=== PATIENT | female | born 1980 | race Caucasian/White ===

== ENCOUNTER 2020-11-18 20:09 | Inpatient (IN) | payer OTHER ==
[~2020-11-18] VITALS: Ht 172.7 cm; Wt 84.5 kg
[~2020-11-18 20:09] MED LIST: CORTISPORIN OTI10 ML EARBOTH; OMNICEF 300 MG300 MG PO
[2020-11-19 07:19] LABS: RED BLOOD COUNT 4.29 M/UL (4.00-5.10); WHITE BLOOD COUNT 5.3 K/UL (4.5-11.0)
[2020-11-19 07:48] LABS: BUN/CREATININE RATIO 19 (0-10)
[2020-11-19] MEDS ORDERED: BETAMETHASONE D50 G1 TP (08:49)
[2020-11-19] MEDS ORDERED: ELAVIL 50 MG TA50 MG PO (08:49)
[2020-11-19] MEDS ORDERED: METOPROLOL SUCC25 MG PO (08:50)
[2020-11-19] MEDS ORDERED: LISINOPRIL-HCT1 EAC1 PO (08:50)
[2020-11-19] MEDS ORDERED: MONTELUKAST SOD10 MG PO (08:54)
[2020-11-19] MEDS ORDERED: BUPRENORPHIN-N1 EACH SL (08:54)
[2020-11-19] MEDS ORDERED: QUETIAPINE FUM100 MG PO (08:55)
[2020-11-19] MEDS ORDERED: BUSPAR 10MG10 MG PO (08:57)
[2020-11-19] MEDS ORDERED: LISINOPRIL20 MG PO (13:31)
[2020-11-19] MEDS ORDERED: VITAMIN D3125 MCG PO (13:34)
[2020-11-19] MEDS ORDERED: MINIPRESS2 MG PO (13:35)
[2020-11-20 09:59] LABS: HEMOGLOBIN 9.7 gm/dl (12.3-15.3); RED BLOOD COUNT 4.12 M/UL (4.00-5.10)
[2020-11-20 10:35] LABS: BUN/CREATININE RATIO 13 (0-10)
[2020-11-21] MEDS ORDERED: ZYVOX600 MG PO (16:43)
== END 2020-11-21 19:10 | disposition other institution (70) | DRG 917 ==
LOC: PROG CARE 20:09
PROVIDERS: Internal Medicine; ADMIT Internal Medicine
DX: T42.6X2A Poisoning by other antiepileptic and sedative-hypnotic drugs, intentional self-harm, initial encounter (principal); G92 Toxic encephalopathy; F11.20 Opioid dependence, uncomplicated; F33.3 Major depressive disorder, recurrent, severe with psychotic symptoms; N39.0 Urinary tract infection, site not specified; Z20.822 Contact with and (suspected) exposure to COVID-19; T40.2X2A Poisoning by other opioids, intentional self-harm, initial encounter; F15.10 Other stimulant abuse, uncomplicated; F13.10 Sedative, hypnotic or anxiolytic abuse, uncomplicated; I10 Essential (primary) hypertension; E87.6 Hypokalemia; I45.81 Long QT syndrome; F41.9 Anxiety disorder, unspecified; B95.2 Enterococcus as the cause of diseases classified elsewhere; Z81.8 Family history of other mental and behavioral disorders; Z87.891 Personal history of nicotine dependence
CPT/HCPCS: 36415; 80053; 80307; 81001; 83735; 84132; 84702; 85025; 85027; 87040; 87077; 87086; 87186; 93005; 96372; 96374; 96375; 96376; G0378; G0379; J0696; J1650; J3370; J3480; J7070; U0002